=== PATIENT | male | born 1935 | race Hispanic/Latino ===

== ENCOUNTER → 2018-08-02 | Outpatient (CLI) | payer MEDICARE ==
[~2018-08-02] MED LIST: AMLO10TA6 PO; AMOX200S10 PO; DONE10TA36 PO; LISI1TAB13 PO; TAMS0.4C32 PO; WARF-67 PO; WARF6TAB49 PO
== END | disposition home or self-care (01) ==
LOC: RAH 15:44
PROVIDERS: ATTEND Urology
DX: R31.9 Hematuria, unspecified (principal); N32.89 Other specified disorders of bladder; I10 Essential (primary) hypertension
CPT/HCPCS: 76770

== ENCOUNTER 2019-01-13 10:34 | Inpatient (IN) | payer MEDICARE ==
[~2019-01-13] VITALS: Ht 167.6 cm; Wt 79.5 kg
[~2019-01-13 10:34] MED LIST changes: -AMLO10TA6 PO; +AMLO10TA7 PO
[2019-01-13 14:43] LABS: BASOPHILS % (AUTO) 0.4 % (0.0-5.0); MEAN CORPUSCULAR HEMOGLOBIN 30.9 pg (27.0-33.0); MEAN CORPUSCULAR HGB CONC 33.9 g/dL (32.0-36.0); MEAN CORPUSCULAR VOLUME 91.3 fL (79-99); MONOCYTES % (AUTO) 5.4 % (3.0-13.0); NEUTROPHILS % (AUTO) 92.2 % (40.0-77.0); NUCLEATED RED BLOOD CELLS 0.2 % (0.0-0.19); PLATELET COUNT (AUTO) 188 K/uL (130-400); RED BLOOD CELL COUNT(AUTO) 4.93 MIL/uL (4.50-6.20); RED CELL DISTRIBUTION WIDTH 13.9 % (11.0-15.5); WHITE BLOOD COUNT (AUTO) 14.2 K/uL (4.8-10.8)
[2019-01-13 15:25] LABS: ALBUMIN 3.1 g/dL (3.5-5.0); BILIRUBIN,DIRECT 0.2 mg/dL (0.0-0.3); BILIRUBIN,TOTAL 1.3 mg/dL (0.2-1.0)
[2019-01-13 15:32] LABS: POTASSIUM 2.7 mmol/L (3.5-5.1)
[2019-01-13] MEDS ORDERED: POTASSIUM CHLORIDE 10% ELIXIR 20 MEQ/15 ML UDCUP ONE (16:29)
[2019-01-13] MEDS ORDERED: CEFTRIAXONE SODIUM 1 GM ONE (16:29)
[2019-01-13] MEDS: CEFTRIAXONE SODIUM 1 GM IV SCH (16:30)
[2019-01-13] MEDS ORDERED: OSELTAMIVIR PHOSPHATE 75 MG CAP ONE (16:30)
[2019-01-13 17:43] LABS: APPEARANCE,URINE CLOUDY (CLEAR); BILIRUBIN,URINE NEGATIVE (NEGATIVE); COLOR,URINE YELLOW (YELLOW); GLUCOSE, URINE (UA) NEGATIVE (NEGATIVE); KETONES,URINE 5 mg/dL (NEGATIVE); LEUKOCYTE ESTERASE ,URINE MODERATE (NEGATIVE); NITRATE,URINE NEGATIVE (NEGATIVE); OCCULT BLOOD,URINE LARGE (NEGATIVE); PROTEIN,URINE 100 (NEGATIVE)
--- NOTE | 2019-01-13 18:05 | NUR ---
Admitted from ER with Influenza A, hypokalemia, Rhabdomylosis, pt. was found at home on the floor, unwitnessed fall. Pt. orineted to self and partially place. Addendum: 01/13/19 at 1830 by DIANA PRASAD RN RN Amended: Links added.
--- NOTE | 2019-01-13 18:05 | NUR ---
1st degree av block Addendum: 01/13/19 at 1949 by DIANA PRASAD RN RN Amended: Links added.
[2019-01-13 18:13] LABS: BACTERIA,URINE Moderate /HPF (None Seen); SQUAMOUS EPITHELIAL CELL,UR Few /HPF (0-2)
[2019-01-13 18:14] LABS: AMORPHOUS SEDIMENT,UR Few /LPF (None Seen)
[2019-01-13] MEDS: IPRATROPIUM/ALBUTEROL SULFATE 3 ML SOLUTION IH SCH ×2 (18:26→21:26)
[2019-01-13 18:37] VITALS: BP 140/89
[2019-01-13] MEDS ORDERED: DUTA.5 PO (18:38)
[2019-01-13] MEDS ORDERED: MEMA10TA20 PO (18:38)
[2019-01-13] MEDS ORDERED: CARB-37 PO (18:38)
[2019-01-13] MEDS ORDERED: PNEUMOCOCCAL VACCINE POLYVALENT 0.5 ML/VIAL [PPV] IM SCH (19:45)
[2019-01-13 20:00] VITALS: BP 114/51
[2019-01-13] MEDS: OSELTAMIVIR PHOSPHATE 75 MG CAP PO SCH (20:48)
[2019-01-13] MEDS: FAMOTIDINE/PF 20 MG/2 ML VIAL IV SCH (20:48)
[2019-01-13] MEDS: FUROSEMIDE 10 MG/ML 4ML VIAL IVP SCH (21:00)
[2019-01-13 22:24] LABS: MAGNESIUM 1.8 mg/dL (1.80-2.40)
[2019-01-13 22:28] LABS: POTASSIUM 2.8 mmol/L (3.5-5.1)
[2019-01-13] MEDS ORDERED: MAGNESIUM 2GM PREMIX 50ML 50 ML IV PRN (23:00)
[2019-01-13] MEDS ORDERED: LIDOCAINE HCL-MPF 1% 2ML VIAL IVP PRN (23:00)
[2019-01-13] MEDS ORDERED: SODIUM CHLORIDE 0.9% 250 ML IV ONE (23:16)
[2019-01-13 23:43] VITALS: BP 108/54
[2019-01-13] MEDS: POTASSIUM CHLORIDE 10% ELIXIR 20 MEQ/15 ML UDCUP PO PRN (23:59)
[2019-01-14] MEDS: IPRATROPIUM/ALBUTEROL SULFATE 3 ML SOLUTION IH SCH ×6 (01:45→21:42)
[2019-01-14] MEDS: POTASSIUM CHLORIDE 20MEQ/100ML 100 ML IV PRN (01:58)
[2019-01-14 03:35] VITALS: BP 155/94
[2019-01-14] MEDS: POTASSIUM CHLORIDE 20 MEQ ERTAB PO PRN ×4 (04:35→13:56)
[2019-01-14 06:14] LABS: BASOPHILS % (AUTO) 0.5 % (0.0-5.0); EOSINOPHILS % (AUTO) 0.1 % (0.0-8.0); HEMATOCRIT 43.3 % (42-54); LYMPHOCYTES % (AUTO) 1.6 % (21.0-51.0); MEAN CORPUSCULAR HEMOGLOBIN 30.9 pg (27.0-33.0); MEAN CORPUSCULAR HGB CONC 33.4 g/dL (32.0-36.0); MEAN CORPUSCULAR VOLUME 92.3 fL (79-99); MONOCYTES % (AUTO) 4.7 % (3.0-13.0); NEUTROPHILS % (AUTO) 93.1 % (40.0-77.0); NUCLEATED RED BLOOD CELLS 0.1 % (0.0-0.19); PLATELET COUNT (AUTO) 165 K/uL (130-400); RED BLOOD CELL COUNT(AUTO) 4.69 MIL/uL (4.50-6.20); RED CELL DISTRIBUTION WIDTH 13.9 % (11.0-15.5); WHITE BLOOD COUNT (AUTO) 13.6 K/uL (4.8-10.8)
[2019-01-14 06:37] LABS: B-TYPE NATRIURETIC PEPTIDE 728 pg/mL (0-100)
[2019-01-14 06:52] LABS: MAGNESIUM 2.3 mg/dL (1.80-2.40); POTASSIUM 3.1 mmol/L (3.5-5.1)
[2019-01-14 08:00] VITALS: BP 136/67
[2019-01-14] MEDS: FUROSEMIDE 10 MG/ML 4ML VIAL IVP SCH ×2 (10:33→20:53)
[2019-01-14] MEDS: OSELTAMIVIR PHOSPHATE 75 MG CAP PO SCH ×2 (10:34→20:52)
[2019-01-14] MEDS: FAMOTIDINE/PF 20 MG/2 ML VIAL IV SCH ×2 (10:34→20:52)
[2019-01-14 12:00] VITALS: BP 139/71
[2019-01-14] MEDS: HYDROCHLOROTHIAZIDE 25 MG TABLET PO SCH (12:07)
[2019-01-14] MEDS: AZITHROMYCIN 500MG+NS 250ML 250 ML IV SCH (12:07)
[2019-01-14] MEDS: GUAIFENESIN-DM 200/20 MG 10 ML PO SCH ×3 (12:07→20:52)
[2019-01-14] MEDS: LISINOPRIL 10 MG TABLET PO SCH (12:08)
[2019-01-14 16:00] VITALS: BP 146/72
[2019-01-14] MEDS: CEFTRIAXONE SODIUM 1 GM IV SCH (17:13)
[2019-01-14] MEDS: TAMSULOSIN HCL 0.4 MG CAP.ER.24H PO SCH (17:14)
[2019-01-14 19:17] VITALS: BP 135/54
--- NOTE | 2019-01-14 20:50 | NUR ---
cm note lives alone, ambulates [facility], provider few hrs daily, sister lives in [place] and assists him as needed., spoke to pt re snf, order due to his fall he is weak. states will think about it and let cm know Addendum: 01/14/19 at 2050 by PEREZ DA SILVA CM Amended: Links added.
[2019-01-14] MEDS: FINASTERIDE 5 MG TABLET PO SCH (20:52)
[2019-01-14] MEDS: CARBIDOPA PO SCH (20:59)
[2019-01-14] MEDS: LEVODOPA PO SCH (20:59)
[2019-01-15 00:25] VITALS: BP 106/65
[2019-01-15] MEDS: IPRATROPIUM/ALBUTEROL SULFATE 3 ML SOLUTION IH SCH ×6 (02:20→22:04)
[2019-01-15] MEDS: GUAIFENESIN-DM 200/20 MG 10 ML PO SCH ×4 (02:53→21:20)
[2019-01-15 04:32] VITALS: BP 94/46
[2019-01-15 06:34] LABS: HEMATOCRIT 39.8 % (42-54); MEAN CORPUSCULAR HEMOGLOBIN 30.9 pg (27.0-33.0); MEAN CORPUSCULAR HGB CONC 33.6 g/dL (32.0-36.0); PLATELET COUNT (AUTO) 165 K/uL (130-400); RED BLOOD CELL COUNT(AUTO) 4.33 MIL/uL (4.50-6.20); RED CELL DISTRIBUTION WIDTH 13.7 % (11.0-15.5); WHITE BLOOD COUNT (AUTO) 7.7 K/uL (4.8-10.8)
[2019-01-15 06:42] LABS: CREATININE 0.9 mg/dL (0.5-1.5); POTASSIUM 3.1 mmol/L (3.5-5.1)
[2019-01-15 08:26] VITALS: BP 119/48
[2019-01-15] MEDS ORDERED: ENOXAPARIN SODIUM 30 MG/0.3 ML SQ SCH (09:00)
[2019-01-15] MEDS: LEVODOPA PO SCH ×2 (09:00→21:00)
[2019-01-15] MEDS: CARBIDOPA PO SCH ×2 (09:00→21:00)
[2019-01-15] MEDS: AZITHROMYCIN 500MG+NS 250ML 250 ML IV SCH (09:59)
[2019-01-15] MEDS: OSELTAMIVIR PHOSPHATE 75 MG CAP PO SCH ×2 (09:59→21:19)
[2019-01-15] MEDS: HYDROCHLOROTHIAZIDE 25 MG TABLET PO SCH (10:01)
[2019-01-15] MEDS: FAMOTIDINE/PF 20 MG/2 ML VIAL IV SCH (10:01)
[2019-01-15] MEDS: DONEPEZIL HCL 5 MG TAB PO SCH (10:01)
[2019-01-15] MEDS: TAMSULOSIN HCL 0.4 MG CAP.ER.24H PO SCH ×2 (10:01→16:19)
[2019-01-15] MEDS: FUROSEMIDE 10 MG/ML 4ML VIAL IVP SCH ×2 (10:01→21:19)
[2019-01-15] MEDS: POTASSIUM CHLORIDE 10% ELIXIR 20 MEQ/15 ML UDCUP PO PRN ×2 (10:02→16:19)
[2019-01-15] MEDS: LISINOPRIL 10 MG TABLET PO SCH (10:02)
[2019-01-15] MEDS: MEMANTINE HCL 5 MG TABLET PO SCH (10:10)
[2019-01-15 11:58] VITALS: BP 140/74
--- NOTE | 2019-01-15 14:20 | NUR ---
RD Notification Patient with Influenza A, Rhabdomyolysis. Patient tolerating Heart Healthy Diet with PO intake at 100% as per patient family. Patient with constipation; Rec to add stool softener or laxative. Patient monitored labs: K 3.1, Glu 108, Ca 7.9, Alb 3.1. RD to continue to monitor. Please notify RD as nutritional concerns arise. Thank you. Addendum: 01/15/19 at [address] RD Amended: Links added.
[2019-01-15 15:48] LABS: ABG BASE EXCESS 5.5 mmol/L (-2.0-3.0); ABG HCO3 29.3 mmol/L (21.0-28.0); ABG OXYGEN SATURATION 93.6 % (95.0-99.0); ABG PCO2 40 mmHg (35-48)
[2019-01-15] MEDS: CEFTRIAXONE SODIUM 1 GM IV SCH (16:19)
[2019-01-15 16:20] VITALS: BP 121/76
[2019-01-15] MEDS: POTASSIUM CHLORIDE 20MEQ/100ML 100 ML IV PRN (18:35)
[2019-01-15 19:20] VITALS: BP 125/75
[2019-01-15] MEDS: FINASTERIDE 5 MG TABLET PO SCH (21:19)
[2019-01-16 00:04] VITALS: BP 146/62
[2019-01-16] MEDS: IPRATROPIUM/ALBUTEROL SULFATE 3 ML SOLUTION IH SCH ×6 (01:01→22:43)
[2019-01-16] MEDS: GUAIFENESIN-DM 200/20 MG 10 ML PO SCH ×4 (03:15→21:01)
[2019-01-16 04:15] VITALS: BP 135/78
[2019-01-16 04:42] LABS: HEMATOCRIT 39.5 % (42-54); MEAN CORPUSCULAR HGB CONC 33.7 g/dL (32.0-36.0); MEAN CORPUSCULAR VOLUME 91.9 fL (79-99); PLATELET COUNT (AUTO) 204 K/uL (130-400); WHITE BLOOD COUNT (AUTO) 7.5 K/uL (4.8-10.8)
[2019-01-16 05:05] LABS: POTASSIUM 3.2 mmol/L (3.5-5.1)
[2019-01-16] MEDS: POTASSIUM CHLORIDE 10% ELIXIR 20 MEQ/15 ML UDCUP PO PRN (06:58)
[2019-01-16 08:00] VITALS: BP 144/78
[2019-01-16] MEDS: LEVODOPA PO SCH ×2 (09:00→21:00)
[2019-01-16] MEDS: CARBIDOPA PO SCH ×2 (09:00→21:00)
[2019-01-16] MEDS: AZITHROMYCIN 500MG+NS 250ML 250 ML IV SCH (09:59)
[2019-01-16] MEDS: FUROSEMIDE 10 MG/ML 4ML VIAL IVP SCH ×2 (10:05→21:00)
[2019-01-16] MEDS: TAMSULOSIN HCL 0.4 MG CAP.ER.24H PO SCH ×2 (10:06→18:00)
[2019-01-16] MEDS: POTASSIUM CHLORIDE 20 MEQ ERTAB PO PRN ×2 (10:06→15:58)
[2019-01-16] MEDS: HYDROCHLOROTHIAZIDE 25 MG TABLET PO SCH (10:06)
[2019-01-16] MEDS: DONEPEZIL HCL 5 MG TAB PO SCH (10:06)
[2019-01-16] MEDS: OSELTAMIVIR PHOSPHATE 75 MG CAP PO SCH ×2 (10:06→21:01)
[2019-01-16] MEDS: MEMANTINE HCL 5 MG TABLET PO SCH (10:06)
[2019-01-16] MEDS: LISINOPRIL 10 MG TABLET PO SCH (10:07)
[2019-01-16] MEDS: ENOXAPARIN SODIUM 40 MG/0.4 ML SYRINGE SQ SCH (10:07)
[2019-01-16 11:41] VITALS: BP 146/90
[2019-01-16] MEDS: CEFTRIAXONE SODIUM 1 GM IV SCH (15:43)
[2019-01-16 16:53] VITALS: BP 134/83
[2019-01-16 20:54] VITALS: BP 147/98
[2019-01-16] MEDS: FINASTERIDE 5 MG TABLET PO SCH (21:01)
[2019-01-17 00:14] VITALS: BP 127/85
[2019-01-17] MEDS: IPRATROPIUM/ALBUTEROL SULFATE 3 ML SOLUTION IH SCH ×6 (02:17→22:58)
[2019-01-17 03:47] VITALS: BP 150/82
[2019-01-17 04:43] LABS: LYMPHOCYTES % (AUTO) 6.7 % (21.0-51.0); MEAN CORPUSCULAR HGB CONC 33.9 g/dL (32.0-36.0); MEAN CORPUSCULAR VOLUME 91.5 fL (79-99); MONOCYTES % (AUTO) 10.5 % (3.0-13.0); NEUTROPHILS % (AUTO) 79.8 % (40.0-77.0); PLATELET COUNT (AUTO) 199 K/uL (130-400); RED BLOOD CELL COUNT(AUTO) 4.59 MIL/uL (4.50-6.20); RED CELL DISTRIBUTION WIDTH 13.8 % (11.0-15.5); WHITE BLOOD COUNT (AUTO) 6.6 K/uL (4.8-10.8)
[2019-01-17 05:15] LABS: CREATININE 0.9 mg/dL (0.5-1.5); POTASSIUM 3.6 mmol/L (3.5-5.1)
[2019-01-17] MEDS: GUAIFENESIN-DM 200/20 MG 10 ML PO SCH ×4 (07:00→21:52)
[2019-01-17 08:04] VITALS: BP 139/88
[2019-01-17] MEDS: AZITHROMYCIN 500MG+NS 250ML 250 ML IV SCH (08:59)
[2019-01-17] MEDS: DONEPEZIL HCL 5 MG TAB PO SCH (09:00)
[2019-01-17] MEDS: LISINOPRIL 10 MG TABLET PO SCH (09:00)
[2019-01-17] MEDS: MEMANTINE HCL 5 MG TABLET PO SCH (09:00)
[2019-01-17] MEDS: HYDROCHLOROTHIAZIDE 25 MG TABLET PO SCH (09:00)
[2019-01-17] MEDS: LEVODOPA PO SCH ×2 (09:00→21:00)
[2019-01-17] MEDS: OSELTAMIVIR PHOSPHATE 75 MG CAP PO SCH ×2 (09:00→21:51)
[2019-01-17] MEDS: CARBIDOPA PO SCH ×2 (09:00→21:00)
[2019-01-17] MEDS: FUROSEMIDE 10 MG/ML 4ML VIAL IVP SCH ×2 (09:01→21:52)
[2019-01-17] MEDS: ENOXAPARIN SODIUM 40 MG/0.4 ML SYRINGE SQ SCH (09:01)
[2019-01-17] MEDS: TAMSULOSIN HCL 0.4 MG CAP.ER.24H PO SCH ×2 (09:03→16:59)
[2019-01-17] MEDS: POTASSIUM CHLORIDE 20 MEQ ERTAB PO PRN ×2 (10:04→19:47)
[2019-01-17 11:28] VITALS: BP 113/63
[2019-01-17] MEDS: AZITHROMYCIN 250 MG TABLET PO SCH (13:06)
[2019-01-17 16:35] VITALS: BP_SYST 101; BP_SYST 153; BP_DIAS 66; BP_DIAS 72
[2019-01-17] MEDS: CEFTRIAXONE SODIUM 1 GM IV SCH (16:59)
[2019-01-17 20:00] VITALS: BP 105/64
[2019-01-17] MEDS: FINASTERIDE 5 MG TABLET PO SCH (21:51)
[2019-01-18] VITALS: BP 120/67
[2019-01-18] MEDS: IPRATROPIUM/ALBUTEROL SULFATE 3 ML SOLUTION IH SCH ×5 (02:10→17:47)
[2019-01-18] MEDS: GUAIFENESIN-DM 200/20 MG 10 ML PO SCH ×3 (03:15→17:30)
[2019-01-18 04:00] VITALS: BP 103/73
[2019-01-18 05:04] LABS: HEMATOCRIT 41.4 % (42-54); MEAN CORPUSCULAR HEMOGLOBIN 31.6 pg (27.0-33.0); MEAN CORPUSCULAR HGB CONC 34.6 g/dL (32.0-36.0); MEAN CORPUSCULAR VOLUME 91.3 fL (79-99); PLATELET COUNT (AUTO) 246 K/uL (130-400); RED BLOOD CELL COUNT(AUTO) 4.53 MIL/uL (4.50-6.20); RED CELL DISTRIBUTION WIDTH 13.9 % (11.0-15.5)
[2019-01-18 05:09] LABS: CREATININE 1.1 mg/dL (0.5-1.5); POTASSIUM 3.6 mmol/L (3.5-5.1)
[2019-01-18 08:00] VITALS: BP 123/72
[2019-01-18] MEDS: LEVODOPA PO SCH (09:00)
[2019-01-18] MEDS: CARBIDOPA PO SCH (09:00)
[2019-01-18] MEDS: FUROSEMIDE 10 MG/ML 4ML VIAL IVP SCH (10:12)
[2019-01-18] MEDS: ENOXAPARIN SODIUM 40 MG/0.4 ML SYRINGE SQ SCH (10:12)
[2019-01-18] MEDS: HYDROCHLOROTHIAZIDE 25 MG TABLET PO SCH (10:12)
[2019-01-18] MEDS: TAMSULOSIN HCL 0.4 MG CAP.ER.24H PO SCH (10:12)
[2019-01-18] MEDS: MEMANTINE HCL 5 MG TABLET PO SCH (10:13)
[2019-01-18] MEDS: DONEPEZIL HCL 5 MG TAB PO SCH (10:13)
[2019-01-18] MEDS: OSELTAMIVIR PHOSPHATE 75 MG CAP PO SCH (10:13)
[2019-01-18] MEDS: LISINOPRIL 10 MG TABLET PO SCH (10:13)
--- NOTE | 2019-01-18 11:11 | NUR ---
ACCEPTED AT [facility] AWARE. WILL NEED [facility] TRANSPORT WITH OXYGEN
[2019-01-18 12:00] VITALS: BP 132/68
[2019-01-18 16:00] VITALS: BP 143/72
[2019-01-18] MEDS: CEFTRIAXONE SODIUM 1 GM IV SCH (17:30)
[2019-01-18] MEDS: AZITHROMYCIN 250 MG TABLET PO SCH (17:31)
== END 2019-01-18 19:10 | DRG 189 ==
LOC: EDH 10:34 → 4CH 16:17
PROVIDERS: ADMIT Hospitalist; ATTEND Hospitalist
PROC: 3E0234Z Introduction of Serum, Toxoid and Vaccine into Muscle, Percutaneous Approach (ICD-10-PCS; principal; 2019-01-13)
DX: J96.00 Acute respiratory failure, unspecified whether with hypoxia or hypercapnia (principal); M62.82 Rhabdomyolysis; N39.0 Urinary tract infection, site not specified; S00.93XA Contusion of unspecified part of head, initial encounter; J10.1 Influenza due to other identified influenza virus with other respiratory manifestations; E87.6 Hypokalemia; E83.42 Hypomagnesemia; F02.80 Dementia in other diseases classified elsewhere, unspecified severity, without behavioral disturbance, psychotic disturbance, mood disturbance, and anxiety; G30.9 Alzheimer's disease, unspecified; I11.0 Hypertensive heart disease with heart failure; I44.0 Atrioventricular block, first degree; S81.012A Laceration without foreign body, left knee, initial encounter; S81.011A Laceration without foreign body, right knee, initial encounter; Z60.2 Problems related to living alone; I50.9 Heart failure, unspecified; N40.0 Benign prostatic hyperplasia without lower urinary tract symptoms; W19.XXXA Unspecified fall, initial encounter; Y93.89 Activity, other specified; Y92.89 Other specified places as the place of occurrence of the external cause; Y99.8 Other external cause status; Z23 Encounter for immunization
CPT/HCPCS: 36415; 36600; 70450; 71045; 80048; 80076; 81001; 82550; 82803; 82948; 83605; 83735; 83880; 84484; 85025; 85027; 87040; 87088; 87804; 90732; 93005; 94640; 94664; 97039; G0378; J0456; J0696; J1650; J1940; J3475; J3480; J3490; J7030